=== PATIENT | female | born 1970 | race African-American/Black ===

== ENCOUNTER → 2016-12-10 | Outpatient (CLI) | payer OTHER ==
[~2016-12-10] MED LIST: BENADRYL; PREDNISONE10 MG PO
== END ==
LOC: MC.RAD 11:15
DX: Z12.31 Encounter for screening mammogram for malignant neoplasm of breast (principal)

== ENCOUNTER → 2022-01-18 | Outpatient (CLI) | payer BC | LOC: MC.RAD 01-04 08:30 | DX: N63.20 Unspecified lump in the left breast, unspecified quadrant (principal) ==